=== PATIENT | male | born 1940 | race Caucasian/White ===

== ENCOUNTER 2018-11-16 09:29 | Emergency (ER) | payer MEDICARE, BC ==
[2018-11-16] MEDS ORDERED: Ondansetron 4 MG Tab.DIS PO ONE (10:47)
[2018-11-16] MEDS ORDERED: Ondansetron 4 MG/2 ML SDV IVPUSH STA (10:50)
--- NOTE | 2018-11-16 11:01 | EDM.PDOC ---
ED HPI GENERAL MEDICAL PROBLEM - General Chief Complaint: Neurological Problem Stated Complaint: DIZZY,CONFUSION Time Seen by Provider: 11/16/18 09:46 Source of Information: Reports: Patient, RN Notes Reviewed, Other ([facility] caregiver) History Limitations: Reports: Altered Mental Status (Dementia) - History of Present Illness INITIAL COMMENTS - FREE TEXT/NARRATIVE: The patient has advanced dementia, and is a resident of [facility]. He is brought to the ED by one of the caregivers at [facility]. According to the caregiver, the patient complained of feeling dizzy and nauseated when upright, with improvement if supine, this morning. The patient is confused, but the caregiver states that the patient's mental status is at his baseline. He denies feeling dyspneic. No recent vomiting, constipation, or diarrhea. The patient denies having any urinary symptoms. No recent fever. It is unclear if he has had similar symptoms in the past. The patient's PCP is Dr. Mccarty. - Related Data Allergies Allergy/AdvReac Type Severity Reaction Status Date / Time No Known Allergies Allergy Verified 01/10/18 14:49 Home Meds: Home Meds Clopidogrel [Plavix] 75 mg PO DAILY 01/10/18 [History] Lisinopril 5 mg PO DAILY 01/10/18 [History] Acetaminophen [Tylenol] 650 mg PO Q6H PRN 11/16/18 [History] Aspirin [Adult Low Dose Aspirin EC] 81 mg PO DAILY 11/16/18 [History] Finasteride [Proscar] 5 mg PO DAILY 11/16/18 [History] Ipratropium/Albuterol Sulfate [Iprat-Albut 0.5-3(2.5) mg/3 ml] 1 inh INH QID PRN 11/16/18 [History] Memantine [Namenda] 5 mg PO BID 11/16/18 [History] Ondansetron [Zofran ODT] 1 tab PO Q8H PRN #10 tab.dis 11/16/18 [Rx] Pantoprazole [ProTONIX] 40 mg PO QAM 11/16/18 [History] Polyethylene Glycol 3350 [MiraLAX] 17 gm PO DAILY 11/16/18 [History] QUEtiapine Fumarate [Seroquel] 50 mg PO BEDTIME 11/16/18 [History] Rosuvastatin [Crestor] 5 mg PO DAILY 11/16/18 [History] Tamsulosin HCl 0.4 mg PO DAILY 11/16/18 [History] metFORMIN HCl [Metformin HCl] 500 mg PO QAM 11/16/18 [History] Past Medical History Cardiovascular History: Reports: Aneurysm (AAA), CAD, High Cholesterol, Hypertension, [place] Respiratory History: Reports: COPD Gastrointestinal History: Reports: GERD Genitourinary History: Reports: BPH Musculoskeletal History: Reports: Osteoarthritis Neurological History: Reports: Alzheimers Disease (dx'd 2015), CVA (12/21/2017) Endocrine/Metabolic History: Reports: Other (See Below) (Prediabetes) - Past Surgical History HEENT Surgical History: Reports: Cataract Surgery (bilateral) Cardiovascular Surgical History: Reports: Coronary Artery Bypass (x 3 vessel) GI Surgical History: Reports: Hernia, Inguinal (bilateral) Social & Family History - Tobacco Use Smoking Status *Q: Former Smoker Used Tobacco, but Quit: Yes Month/Year Tobacco Last Used: unsure - Caffeine Use Caffeine Use: Reports: Coffee - Alcohol Use Alcohol Use History: No - Recreational Drug Use Recreational Drug Use: No - Living Situation & Occupation Living situation: Reports: , with Spouse, Assisted Living ([facility]) Occupation: Retired ED ROS GENERAL - Review of Systems Review Of Systems: ROS reveals no pertinent complaints other than HPI. GI/Abdominal: Reports: Constipation (chronic) ED EXAM, DIZZINESS - Physical Exam Exam: See Below Exam Limited By: Physical Impairment (CHEESH-NA, confused, moves slowly) General Appearance: Alert, WD/WN, No Apparent Distress Eye Exam: Bilateral Eye: EOMI, Normal Inspection Ears: Normal External Exam, Normal Canal, Normal TMs, Hearing Loss Nose: Normal Inspection, Normal Mucosa, No Blood Throat/Mouth: Normal Inspection, Normal Lips, Normal Teeth, Normal Gums, Normal Oropharynx, Normal Voice, No Airway Compromise Head Exam: Atraumatic, Normocephalic Vertigo: reproducible (placing the patient in an upright position), short duration Neck: Non-Tender, Limited Range of Motion (bilaterally) Respiratory/Chest: No Respiratory Distress, Lungs Clear, Normal Breath Sounds, No Accessory Muscle Use Cardiovascular: Normal Peripheral Pulses, Regular Rate, Rhythm, No Edema, No Gallop, No JVD, No Murmur, No Rub GI/Abdominal: Normal Bowel Sounds, Soft, Non-Tender, No Organomegaly, No Distention, No Abnormal Bruit, No Mass (Male) Exam: Deferred Rectal (Males) Exam: Deferred Neurological: Alert, Normal Dorsiflexion, CN II-XII Intact, Normal Plantar Flexion, No Motor/Sensory Deficits, Other (Pleasantly confused. [place]-Hallpike maneuver attempted bilaterally, however, the patient only reported dizziness when sat upright from both positions. Unable to determine if nystagmus was present, as the patient frequently blinked and moved his eyes, despite requests to try to keep them focused on one spot.) Back Exam: Normal Inspection, Full Range of Motion, NT Extremities: Normal Inspection, Normal Range of Motion, No Pedal Edema, Normal Capillary Refill Psychiatric: Normal Affect Skin Exam: Warm, Dry, Intact, Normal Color, No Rash EKG INTERPRETATION EKG Date: 11/16/18 Time: 09:39 Rhythm: NSR Rate (Beats/Min): 68 [place]: RAD-Right [place] Deviation (possibly due to LPFB) P-Wave: Present (borderline 1 AVB) QRS: RBBB (incomplete) ST-T: Normal QT: Normal Comparison: No Change (01/10/2018) Course - Vital Signs Last Recorded V/S: Last Vital Signs Temp 36.2 C 11/16/18 09:37 Pulse 69 11/16/18 12:50 Resp 18 11/16/18 12:50 BP 118/65 11/16/18 12:50 Pulse Ox 93 L 11/16/18 12:50 Orthostatic Blood Pressure [ 115/71 Standing] Orthostatic Blood Pressure [ 128/71 Supine] - Orders/Labs/Meds Labs: Laboratory Tests 11/16/18 11/16/18 Range/Units 09:40 09:40 WBC 8.65 (4.23-9.07) K/mm3 RBC 4.00 L (4.63-6.08) M/mm3 Hgb 12.9 L (13.7-17.5) gm/L Hct 40.6 (40.1-51.0) % MCV 101.5 H (79.0-92.2) fl MCH 32.3 H (25.7-32.2) pg MCHC 31.8 L (32.2-35.5) g/dl RDW Std Deviation 49.7 H (35.1-43.9) fL Plt Count 239 (163-337) K/mm3 MPV 9.8 (9.4-12.3) fl Neutrophils % (Manual) 69 H (40-60) % Band Neutrophils % 0 (0-10) % Lymphocytes % (Manual) 16 L (20-40) % Atypical Lymphs % 0 % Monocytes % (Manual) 10 (2-10) % Eosinophils % (Manual) 5 (0.8-7.0) % Basophils % (Manual) 0 L (0.2-1.2) Platelet Estimate Adequate Plt Morphology Comment Normal RBC Morph Comment Normal Sodium 140 (136-145) mEq/L Potassium 4.7 (3.5-5.1) mEq/L Chloride 104 (98-107) mEq/L Carbon Dioxide 27 (21-32) mEq/L Anion Gap 13.7 (5-15) BUN 23 H (7-18) mg/dL Creatinine 1.3 (0.7-1.3) mg/dL Est Cr Clr Drug Dosing 47.57 mL/min Estimated GFR (MDRD) 53 (>60) mL/min BUN/Creatinine Ratio 17.7 (14-18) Glucose 117 H (83-115) mg/dL Calcium 9.6 (8.5-10.1) mg/dL Magnesium 2.1 (1.8-2.4) mg/dl Total Bilirubin 0.5 (0.2-1.0) mg/dL AST 21 (15-37) U/L ALT 20 (16-63) U/L Alkaline Phosphatase 92 (46-116) U/L Troponin I < 0.017 (0.00-0.056) ng/mL Total Protein 7.4 (6.4-8.2) g/dl Albumin 3.9 (3.4-5.0) g/dl Globulin 3.5 gm/dL Albumin/Globulin Ratio 1.1 (1-2) Meds: Medications Discontinued Medications Generic Name Dose Route Start Last Admin Trade Name Freq PRN Reason Stop Dose Admin Ondansetron HCl 4 mg 11/16/18 10:47 11/16/18 10:52 Zofran Odt PO 11/16/18 10:48 Not Given ONETIME ONE Ondansetron HCl 4 mg 11/16/18 10:50 11/16/18 10:52 Zofran IVPUSH 11/16/18 10:51 4 mg ONETIME STA Administration - Re-Assessments/Exams Free Text/Narrative Re-Assessment/Exam: 11/16/18 10:55 11/16/18 10:09 By both history and physical examination, the patient appears to be suffering from BPPV, although he was unable to cooperate adequately with the [place]-Hallpike maneuver such that I was able to discern unilateral nystagmus. I will start the patient on Zofran, but I am not going to start meclizine, as it would likely worsen his confusion and cause urinary retention. I have ordered orthostatics and blood work, to make sure that no other significant abnormalities are found. 11/16/18 12:15 The patient is not orthostatic. His CBC is remarkable for a hemoglobin mildly depressed at 12.9. The remainder of his CBC is unremarkable. His CMP is remarkable for BUN slightly elevated at 23, with a normal creatinine. His blood glucose is mildly elevated at 117. The remainder of his CMP is unremarkable. His magnesium level is normal at 2.1. His troponin is undetectably low. 11/16/18 12:24 The caregiver who was here earlier has left, replaced by the patient's daughter. Test results discussed with the patient's daughter. As above, the patient appears to be suffering from BPPV. Because of potential complications, I am not going to start him on meclizine, however, I will prescribe Zofran ODT. I will refer the patient to ENT. Departure - Departure Time of Disposition: 12:25 Disposition: Home, Self-Care 01 Condition: Good Clinical Impression: BPPV (benign paroxysmal positional vertigo) - Discharge Information *PRESCRIPTION DRUG MONITORING PROGRAM REVIEWED*: Not Applicable *COPY OF PRESCRIPTION DRUG MONITORING REPORT IN PATIENT LONG: Not Applicable Prescriptions: Ondansetron [Zofran ODT] 1 tab PO Q8H PRN #10 tab.dis PRN Reason: Nausea/Vomiting Instructions: Vertigo, [id number], Benign Positional Vertigo Referrals: Palmer Mccarty MD [Primary Care Provider] - Derrek Bonner MD [Ordering Only Provider] - Forms: ED Department Discharge Additional Instructions: Mr. Mack was seen in the emergency room for dizziness and nausea when upright. Workup in the ER included blood work, positional blood pressure checks, and an ECG. Based on his history, physical exam, and ER tests, Mr. Mack appears to be suffering from benign paroxysmal positional vertigo (BPPV), a condition caused by the blockage of one of the tiny semicircular canals in one of his inner ears. Unfortunately, because of Mr. Mack's dementia and enlarged prostate, we are not recommending that he receive the anti-dizziness medicine meclizine. We recommend that changes in position be kept to a minimum, and that extreme care be given anytime he walks anywhere, to make sure that he does not fall. Mr. Mack has been started on the anti-nausea medicine Zofran. A prescription for Zofr[facility] has been sent to [facility] [employer]. Mr. Mack can dissolve one tablet of Zofran on his tongue up to every 8 hours, as needed for nausea/vomiting. Have him follow-up with the ENT Dr. Derrek Bonner at the next available appointment , for further evaluation and treatment of his BPPV. If any other problems, please do not hesitate to return Mr. Mack to the ER.
== END 2018-11-16 12:55 | disposition home or self-care (01) ==
LOC: JD.ED 09:29
DX: H81.10 Benign paroxysmal vertigo, unspecified ear (principal); I10 Essential (primary) hypertension; E78.00 Pure hypercholesterolemia, unspecified; I25.2 Old myocardial infarction; J44.9 Chronic obstructive pulmonary disease, unspecified; K21.9 Gastro-esophageal reflux disease without esophagitis; G30.9 Alzheimer's disease, unspecified; F02.80 Dementia in other diseases classified elsewhere, unspecified severity, without behavioral disturbance, psychotic disturbance, mood disturbance, and anxiety; Z79.899 Other long term (current) drug therapy; Z79.82 Long term (current) use of aspirin; Z87.891 Personal history of nicotine dependence
CPT/HCPCS: 36415; 80053; 83735; 84484; 85007; 85027; 96374; 99284; J2405; 99283

== ENCOUNTER 2019-06-25 12:04 | Emergency (ER) | payer MEDICARE, BC ==
[2019-06-25] MEDS ORDERED: Sodium Chloride 0.9% 10 ML Syringe FLUSH PRN (12:36)
[2019-06-25] MEDS ORDERED: Ondansetron 4 MG/2 ML SDV IVPUSH ONE (12:36)
[2019-06-25] MEDS ORDERED: Sodium Chloride 0.9% 1,000 ML IV SCH (12:45)
--- NOTE | 2019-06-25 13:26 | CT ---
Head CT Technique: Multiple axial sections through the brain were obtained. Intravenous contrast was not utilized. Comparison: Prior head CT study of 01/10/18. Findings: Ventricles along with basal cisterns and sulci over the convexities are moderately prominent. Minimal diminished density is noted within the periventricular white matter compatible with minimal small vessel ischemic demyelination change. No other abnormal parenchymal densities are seen. No evidence of intracranial hemorrhage. No midline shift or mass effect is seen. Bone window settings were reviewed. Mastoid sinuses show nothing acute. Visualized paranasal sinuses show minimal mucosal thickening within the right maxillary sinus and a retention cyst within the left maxillary sinus measuring 1.5 cm. No acute calvarial abnormality is appreciated. Impression: 1. Senescent change as noted above. 2. Minimal sinus findings believed to be chronic. 3. No acute intracranial abnormality is appreciated. Diagnostic code #2 This report was dictated in [place] Standard Time
--- NOTE | 2019-06-25 13:49 | EDM.PDOC ---
ED HPI GENERAL MEDICAL PROBLEM - General Chief Complaint: Neurological Problem Stated Complaint: CLINIC SENT HIM OVER Time Seen by Provider: 06/25/19 12:20 Source of Information: Reports: Patient, Family, Old Records History Limitations: Reports: Other (Some dementia and hard of hearing) - History of Present Illness INITIAL COMMENTS - FREE TEXT/NARRATIVE: The patient presents from [facility] with his daughter for dizziness and falls. He does okay when he is laying down but when they get him up he is very dizzy and he has fallen 3 times today. He is on aspirin but no other blood thinners. He has no injuries. He denies a headache, neck pain, chest pain, abdominal pain, hip pain or arm pain. Onset: Gradual Duration: Day(s): Improves with: Reports: None Worsens with: Reports: None Associated Symptoms: Reports: No Other Symptoms - Related Data Allergies Allergy/AdvReac Type Severity Reaction Status Date / Time No Known Allergies Allergy Verified 06/25/19 12:22 Home Meds: Home Meds Clopidogrel [Plavix] 75 mg PO DAILY 01/10/18 [History] Lisinopril 5 mg PO DAILY 01/10/18 [History] Acetaminophen [Tylenol] 650 mg PO Q6H PRN 11/16/18 [History] Aspirin [Adult Low Dose Aspirin EC] 81 mg PO DAILY 11/16/18 [History] Finasteride [Proscar] 5 mg PO DAILY 11/16/18 [History] Ipratropium/Albuterol Sulfate [Iprat-Albut 0.5-3(2.5) mg/3 ml] 1 inh INH QID PRN 11/16/18 [History] Memantine [Namenda] 5 mg PO BID 11/16/18 [History] Ondansetron [Zofran ODT] 1 tab PO Q8H PRN #10 tab.dis 11/16/18 [Rx] Pantoprazole [ProTONIX] 40 mg PO QAM 11/16/18 [History] Polyethylene Glycol 3350 [MiraLAX] 17 gm PO DAILY 11/16/18 [History] QUEtiapine Fumarate [Seroquel] 50 mg PO BEDTIME 11/16/18 [History] Rosuvastatin [Crestor] 5 mg PO DAILY 11/16/18 [History] Tamsulosin HCl 0.4 mg PO DAILY 11/16/18 [History] metFORMIN HCl [Metformin HCl] 500 mg PO QAM 11/16/18 [History] Meclizine [Antivert] 25 mg PO Q6H PRN #30 tab 06/25/19 [Rx] Past Medical History Cardiovascular History: Reports: Aneurysm, CAD, High Cholesterol, Hypertension, [place] Respiratory History: Reports: COPD Gastrointestinal History: Reports: GERD Genitourinary History: Reports: BPH Musculoskeletal History: Reports: Osteoarthritis Neurological History: Reports: Alzheimers Disease, CVA Endocrine/Metabolic History: Reports: Other (See Below) - Past Surgical History HEENT Surgical History: Reports: Cataract Surgery Cardiovascular Surgical History: Reports: Coronary Artery Bypass GI Surgical History: Reports: Hernia, Inguinal Social & Family History - Family History Family Medical History: Noncontributory - Tobacco Use Smoking Status *Q: Never Smoker - Caffeine Use Caffeine Use: Reports: Soda - Recreational Drug Use Recreational Drug Use: No - Living Situation & Occupation Living situation: Reports: , with Spouse, Assisted Living ([facility]) Occupation: Retired ED ROS GENERAL - Review of Systems Review Of Systems: See Below Constitutional: Reports: No Symptoms HEENT: Reports: Vertigo Respiratory: Reports: No Symptoms Cardiovascular: Reports: No Symptoms Endocrine: Reports: No Symptoms GI/Abdominal: Reports: No Symptoms : Reports: No Symptoms Musculoskeletal: Reports: No Symptoms Skin: Reports: No Symptoms Neurological: Reports: Dizziness ED EXAM, NEURO - Physical Exam Exam: See Below Exam Limited By: No Limitations General Appearance: Alert, No Apparent Distress Ears: Normal External Exam Nose: Normal Inspection Head Exam: Atraumatic, Normocephalic Neck: Normal Inspection Respiratory/Chest: No Respiratory Distress, Lungs Clear, Normal Breath Sounds Cardiovascular: Regular Rate, Rhythm, No Edema, No Murmur GI/Abdominal: Soft, Non-Tender, No Organomegaly, No Mass Neurological: Alert, No Motor/Sensory Deficits, Oriented x 3 EKG INTERPRETATION EKG Date: 06/25/19 Time: 12:43 Rhythm: NSR Rate (Beats/Min): 61 [place]: Normal P-Wave: Present QRS: Normal ST-T: Normal QT: Normal DC/PQ Interval: 1st degree HB Course - Vital Signs Last Recorded V/S: Last Vital Signs Temp 97.2 F 06/25/19 12:18 Pulse 66 06/25/19 12:18 Resp 18 06/25/19 12:18 BP 151/85 H 06/25/19 12:18 Pulse Ox 95 06/25/19 12:18 - Orders/Labs/Meds Orders: Active Orders 24 hr Category Date Time Status Cardiac Monitoring [RC] . DIRECTED Care 06/25/19 12:37 Active EKG Documentation Completion [RC] STAT Care 06/25/19 12:38 Active Peripheral IV Care [RC] . DIRECTED Care 06/25/19 12:38 Active Sodium Chloride 0.9% [Normal Saline] 1,000 ml Med 06/25/19 12:45 Active IV ASDIRECTED Sodium Chloride 0.9% [Saline Flush] Med 06/25/19 12:36 Active 10 ml FLUSH ASDIRECTED PRN ED Antiemetic Medication Reflex [OM.PC] Stat Oth 06/25/19 12:37 Ordered Peripheral IV Insertion Adult [OM.PC] Stat Oth 06/25/19 12:36 Ordered Medication Orders Sodium Chloride (Normal Saline) 1,000 mls @ 125 mls/hr IV ASDIRECTED GLADYS Last Admin: 06/25/19 13:53 Dose: 125 mls/hr Sodium Chloride (Saline Flush) 10 ml FLUSH ASDIRECTED PRN PRN Reason: Keep Vein Open Last Admin: 06/25/19 13:27 Dose: 10 ml Labs: Laboratory Tests 06/25/19 06/25/19 Range/Units 13:25 13:25 WBC 8.04 (4.23-9.07) K/mm3 RBC 3.75 L (4.63-6.08) M/mm3 Hgb 12.1 L (13.7-17.5) gm/dl Hct 38.4 L (40.1-51.0) % MCV 102.4 H (79.0-92.2) fl MCH 32.3 H (25.7-32.2) pg MCHC 31.5 L (32.2-35.5) g/dl RDW Std Deviation 49.3 H (35.1-43.9) fL Plt Count 258 (163-337) K/mm3 MPV 9.3 L (9.4-12.3) fl Neut % (Auto) 64.0 (34.0-67.9) % Lymph % (Auto) 23.0 (21.8-53.1) % [place] % (Auto) 8.1 (5.3-12.2) % Eos % (Auto) 4.1 (0.8-7.0) Baso % (Auto) 0.6 (0.1-1.2) % Neut # (Auto) 5.14 (1.78-5.38) K/mm3 Lymph # (Auto) 1.85 (1.32-3.57) K/mm3 [place] # (Auto) 0.65 (0.30-0.82) K/mm3 Eos # (Auto) 0.33 (0.04-0.54) K/mm3 Baso # (Auto) 0.05 (0.01-0.08) K/mm3 Sodium 139 (136-145) mEq/L Potassium 5.1 (3.5-5.1) mEq/L Chloride 104 (98-107) mEq/L Carbon Dioxide 28 (21-32) mEq/L Anion Gap 12.1 (5-15) BUN 28 H (7-18) mg/dL Creatinine 1.5 H (0.7-1.3) mg/dL Est Cr Clr Drug Dosing 43.83 mL/min Estimated GFR (MDRD) 45 (>60) mL/min BUN/Creatinine Ratio 18.7 H (14-18) Glucose 94 (83-115) mg/dL Calcium 9.2 (8.5-10.1) mg/dL Total Bilirubin 0.5 (0.2-1.0) mg/dL AST 18 (15-37) U/L ALT 19 (16-63) U/L Alkaline Phosphatase 72 (46-116) U/L Troponin I < 0.017 (0.00-0.056) ng/mL Total Protein 7.3 (6.4-8.2) g/dl Albumin 3.7 (3.4-5.0) g/dl Globulin 3.6 gm/dL Albumin/Globulin Ratio 1.0 (1-2) Meds: Medications Generic Name Dose Route Start Last Admin Trade Name Freq PRN Reason Stop Dose Admin Sodium Chloride 1,000 mls @ 125 mls/hr 06/25/19 12:45 06/25/19 13:53 Normal Saline IV 125 mls/hr ASDIRECTED GLADYS Administration Sodium Chloride 10 ml 06/25/19 12:36 06/25/19 13:27 Saline Flush FLUSH 10 ml ASDIRECTED PRN Administration Keep Vein Open Discontinued Medications Generic Name Dose Route Start Last Admin Trade Name Rachid PRN Reason Stop Dose Admin Meclizine HCl 25 mg 06/25/19 12:38 06/25/19 13:27 Antivert PO 06/25/19 12:39 25 mg ONETIME ONE Administration Ondansetron HCl 4 mg 06/25/19 12:36 06/25/19 13:26 Zofran IVPUSH 06/25/19 12:37 4 mg ONETIME ONE Administration - Re-Assessments/Exams Free Text/Narrative Re-Assessment/Exam: 06/25/19 14:48 I ordered an IV NS at 125mL/hr, antivert 25mg PO, labs and a CT of his head. His EKG shows a 1st degree HB with no acute changes. His CT shows senescent change. Minimal sinus findings believed to be chronic. No acute intracranial abnormality is appreciated. His Hgb was a little low at 12.1. His creatinine was elevated at 1.5. Troponin is negative. Departure - Departure Time of Disposition: 15:00 Disposition: Home, Self-Care 01 Condition: Good Clinical Impression: Vertigo Fall Qualifiers: Encounter type: initial encounter Qualified Code(s): W19.XXXA - Unspecified fall, initial encounter - Discharge Information *PRESCRIPTION DRUG MONITORING PROGRAM REVIEWED*: Not Applicable *COPY OF PRESCRIPTION DRUG MONITORING REPORT IN PATIENT LONG: Not Applicable Prescriptions: Meclizine [Antivert] 25 mg PO Q6H PRN #30 tab PRN Reason: Dizziness Referrals: Palmer Mccarty MD [Primary Care Provider] - 1 Week Forms: ED Department Discharge Additional Instructions: Take your medicine as prescribed. Take the antivert every 6 hours as needed for dizziness. Take time when standing up. Please return if you are worse. Sepsis Event Note - Evaluation Sepsis Screening Result: No Definite Risk - Focused Exam Vital Signs: Vital Signs Temp Pulse Resp BP Pulse Ox 06/25/19 12:18 97.2 F 66 18 151/85 H 95 Date Exam was Performed: 06/25/19 Time Exam was Performed: 14:47 - My Orders Last 24 Hours: My Active Orders 06/25/19 12:36 Sodium Chloride 0.9% [Saline Flush] 10 ml FLUSH ASDIRECTED PRN Peripheral IV Insertion Adult [OM.PC] Stat 06/25/19 12:37 Cardiac Monitoring [RC] . DIRECTED ED Antiemetic Medication Reflex [OM.PC] Stat 06/25/19 12:38 EKG Documentation Completion [RC] STAT Peripheral IV Care [RC] . DIRECTED 06/25/19 12:45 Sodium Chloride 0.9% [Normal Saline] 1,000 ml IV ASDIRECTED - Assessment/Plan Last 24 Hours: My Active Orders 06/25/19 12:36 Sodium Chloride 0.9% [Saline Flush] 10 ml FLUSH ASDIRECTED PRN Peripheral IV Insertion Adult [OM.PC] Stat 06/25/19 12:37 Cardiac Monitoring [RC] . DIRECTED ED Antiemetic Medication Reflex [OM.PC] Stat 06/25/19 12:38 EKG Documentation Completion [RC] STAT Peripheral IV Care [RC] . DIRECTED 06/25/19 12:45 Sodium Chloride 0.9% [Normal Saline] 1,000 ml IV ASDIRECTED
== END 2019-06-25 15:10 | disposition home or self-care (01) ==
LOC: JD.ED 12:04
DX: R42 Dizziness and giddiness (principal); I10 Essential (primary) hypertension; I25.2 Old myocardial infarction; I25.10 Atherosclerotic heart disease of native coronary artery without angina pectoris; E78.00 Pure hypercholesterolemia, unspecified; J44.9 Chronic obstructive pulmonary disease, unspecified; K21.9 Gastro-esophageal reflux disease without esophagitis; M19.90 Unspecified osteoarthritis, unspecified site; Z86.73 Personal history of transient ischemic attack (TIA), and cerebral infarction without residual deficits; Z79.82 Long term (current) use of aspirin; Z79.84 Long term (current) use of oral hypoglycemic drugs; Z79.02 Long term (current) use of antithrombotics/antiplatelets; Z79.899 Other long term (current) drug therapy; W19.XXXA Unspecified fall, initial encounter
CPT/HCPCS: 36415; 70450; 80053; 84484; 85025; 93005; 96361; 96374; 99284; A9270; J2405; J7030; 93010

== ENCOUNTER 2019-11-11 16:51 | Emergency (ER) | payer MEDICARE, BC ==
--- NOTE | 2019-11-11 17:15 | EDM.PDOC ---
<Scot Kelley Symone - Last Filed: 11/11/19 18:58> ED HPI GENERAL MEDICAL PROBLEM - General Chief Complaint: Genitourinary Problem Stated Complaint: TROUBLE URINATING Time Seen by Provider: 11/11/19 17:14 Source of Information: Reports: Patient History Limitations: Reports: No Limitations - History of Present Illness INITIAL COMMENTS - FREE TEXT/NARRATIVE: 79-year-old man presents to the ED in the accompaniment of his daughter or granddaughter. He presents with diffuse lower abdominal pain and inability to void more than a few dribbles the last 3 to 4 days. He was investigated last week for possible urinary tract infection at [facility] and the urine apparently was negative. Patient has had troubles with his prostate for many years with known benign prostate hypertrophy. He has never required a Sharpe catheter. Apparently no new medications have been started to his knowledge such as an acetylcholine inhibitor that would cause his retention. He has associated mild nausea. He states his bowel function is still good. His appetite is poor because of the lower abdominal pain.. Onset: Gradual Onset Date: 11/05/19 Duration: Day(s):, Constant, Getting Worse Location: Reports: Abdomen (Use lower abdominal pain and bloating. Difficulty voiding.) Quality: Reports: Other Severity: Moderate (~Voiding with diffuse lower abdominal pain) Improves with: Reports: None ( 5 out of 10) Worsens with: Reports: None Context: Denies: Activity, Exercise, Lifting, Sick Contact, Trauma, Other Associated Symptoms: Reports: Loss of Appetite, Malaise, Nausea/Vomiting, Shortness of Breath, Weakness. 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: Reports: Other (see below) (None.) Right Lower Abdomen Pain Score (Numeric/FACES): 5 - Related Data Allergies Allergy/AdvReac Type Severity Reaction Status Date / Time No Known Allergies Allergy Verified 11/11/19 17:18 Home Meds: Home Meds Clopidogrel [Plavix] 75 mg PO DAILY 01/10/18 [History] Lisinopril 5 mg PO DAILY 01/10/18 [History] Acetaminophen [Tylenol] 650 mg PO Q6H PRN 11/16/18 [History] Aspirin [Adult Low Dose Aspirin EC] 81 mg PO DAILY 11/16/18 [History] Finasteride [Proscar] 5 mg PO DAILY 11/16/18 [History] Memantine [Namenda] 5 mg PO BID 11/16/18 [History] Ondansetron [Zofran ODT] 1 tab PO Q8H PRN #10 tab.dis 11/16/18 [Rx] Pantoprazole [ProTONIX] 40 mg PO QAM 11/16/18 [History] QUEtiapine Fumarate [Seroquel] 50 mg PO BEDTIME 11/16/18 [History] Rosuvastatin [Crestor] 5 mg PO DAILY 11/16/18 [History] Tamsulosin HCl 0.4 mg PO DAILY 11/16/18 [History] metFORMIN HCl [Metformin HCl] 500 mg PO QAM 11/16/18 [History] polyethylene glycoL 3350 [MiraLAX] 17 gm PO DAILY 11/16/18 [History] Meclizine [Antivert] 25 mg PO Q6H PRN #30 tab 06/25/19 [Rx] Doxycycline [Vibra-Tabs] 100 mg PO BID #28 tablet 11/11/19 [Rx] Past Medical History Cardiovascular History: Reports: Aneurysm, CAD, High Cholesterol, Hypertension, AR Respiratory History: Reports: COPD Gastrointestinal History: Reports: GERD Genitourinary History: Reports: BPH (fpr many years) Musculoskeletal History: Reports: Osteoarthritis Neurological History: Reports: Alzheimers Disease, CVA, Other (See Below) ( Unclear how long he has been on Namenda) Endocrine/Metabolic History: Reports: Other (See Below) - Past Surgical History HEENT Surgical History: Reports: Cataract Surgery Cardiovascular Surgical History: Reports: Coronary Artery Bypass GI Surgical History: Reports: Hernia, Inguinal Social & Family History - Family History Family Medical History: Noncontributory - Caffeine Use Caffeine Use: Reports: Soda - Living Situation & Occupation Living situation: Reports: , with Spouse, Extended Care Facility ( [facility] house) Occupation: Retired ED ROS GENERAL - Review of Systems Review Of Systems: See Below Constitutional: Reports: Malaise, Weakness, Fatigue, Decreased Appetite. Denies : Fever, Chills HEENT: Reports: Glasses, Hearing Loss (Mildly hard of hearing) Respiratory: Reports: Shortness of Breath. Denies: Wheezing, Pleuritic Chest Pain, Cough, Sputum, Hemoptysis Cardiovascular: Reports: Blood Pressure Problem, Dyspnea on Exertion (Usually in his feet), Edema. Denies: Claudication, Lightheadedness, Orthopnea, Palpitations Endocrine: Reports: Fatigue GI/Abdominal: Reports: Decreased Appetite (Since he has the lower abdominal pressure discomfort). Denies: Constipation, Diarrhea : Reports: Frequency, Urinary Retention (Urinary retention at presentation today), Other (1 BPH) Skin: Reports: No Symptoms Neurological: Reports: Confusion (On Alzheimer's disease.), Difficulty Walking ( On occasion). Denies: Dizziness, Headache, Numbness, Syncope, Tingling Psychiatric: Reports: Agitation (Has been known to become agitated. Is on Seroquel) Hematologic/Lymphatic: Reports: No Symptoms Immunologic: Reports: No Symptoms ED EXAM, RENAL/ - Physical Exam Exam: See Below Exam Limited By: No Limitations General Appearance: Alert (He seemed alert and oriented today and answered all questions quite appropriately.), WD/WN, Mild Distress, Other (Lower abdominal pain.) Eye Exam: Bilateral Eye: Normal Inspection, Periorbital Changes Throat/Mouth: Normal Inspection, Normal Lips, Normal Oropharynx Head: Atraumatic, Normocephalic, Other (No outward signs of any head or facial trauma.) Neck: Normal Inspection. No: Carotid Bruit, Lymphadenopathy (L), Lymphadenopathy (R), Thyromegaly Respiratory/Chest: Respiratory Distress, Decreased Breath Sounds (Mild tachypnea on examination. Minutes breath sounds to lower 25% lung kline bilaterally and posteriorly.). No: Rales, Rhonchi, Wheezing Cardiovascular: Normal Peripheral Pulses, Regular Rate, Rhythm, No Edema, No Gallop, No Murmur, No Rub, Other (Healed midline sternotomy. Apparently had a quadruple bypass in the past.) GI/Abdominal: Distended (He has absence of bowel sounds. Abdomen is grossly distended from the pubic symphysis well above the umbilicus compatible with a markedly distended urinary bladder. Bladder scan estimates greater than 750 mils I suspect there is greater than 1500 mils in his bladder.), Tender (He is moderately tender to palpation in the distribution of the urinary bladder and inferior to the umbilicus.), Abnormal Bowel Sounds (Male) Exam: No Hernia Back Exam: Normal Inspection, Full Range of Motion. No: CVA Tenderness (L), CVA Tenderness (R) Extremities: Normal Inspection, Normal Range of Motion, Non-Tender, Other Neurological: Alert (Trace pedal edema feet), CN II-XII Intact. No: Oriented ( Disoriented to time of day) Psychiatric: Normal Affect, Normal Mood Skin Exam: Warm, Dry, Intact, Normal Color, No Rash Course - Vital Signs Last Recorded V/S: Last Vital Signs Temp 36.2 C 11/11/19 19:30 Pulse 67 11/11/19 19:30 Resp 20 11/11/19 19:30 BP 137/68 11/11/19 19:30 Pulse Ox 93 L 11/11/19 19:30 - Orders/Labs/Meds Orders: Active Orders 24 hr Category Date Time Status Bladder Scan [RC] ASDIRECTED Care 11/11/19 17:14 Active Insert Sharpe Catheter [Insert Urinary Catheter] [OM.PC] Care 11/11/19 18:00 Ordered Q24H Urinary Catheter Assessment [RC] ASDIRECTED Care 11/11/19 17:59 Active URINALYSIS W/MICROSCOPIC [UA W/MICROSCOPIC] [URIN] Stat Lab 11/11/19 18:37 Ordered Labs: Laboratory Tests 11/11/19 11/11/19 11/11/19 Range/Units 18:15 18:15 18:15 WBC 7.86 (4.23-9.07) K/mm3 RBC 3.57 L (4.63-6.08) M/mm3 Hgb 11.3 L (13.7-17.5) gm/dl Hct 35.2 L (40.1-51.0) % MCV 98.6 H D (79.0-92.2) fl MCH 31.7 (25.7-32.2) pg MCHC 32.1 L (32.2-35.5) g/dl RDW Std Deviation 47.6 H (35.1-43.9) fL Plt Count 332 (163-337) K/mm3 MPV 8.3 L (9.4-12.3) fl Neutrophils % (Manual) 69 H (40-60) % Band Neutrophils % 0 (0-10) % Lymphocytes % (Manual) 17 L (20-40) % Atypical Lymphs % 0 % Monocytes % (Manual) 11 H (2-10) % Eosinophils % (Manual) 3 (0.8-7.0) % Basophils % (Manual) 0 L (0.2-1.2) Platelet Estimate Adequate Anisocytosis 1+ slight RBC Morph Comment Not Reportable Sodium 132 L (136-145) mEq/L Potassium 4.7 (3.5-5.1) mEq/L Chloride 97 L (98-107) mEq/L Carbon Dioxide 27 (21-32) mEq/L Anion Gap 12.7 (5-15) BUN 15 (7-18) mg/dL Creatinine 1.4 H (0.7-1.3) mg/dL Est Cr Clr Drug Dosing TNP Estimated GFR (MDRD) 49 (>60) mL/min BUN/Creatinine Ratio 10.7 L (14-18) Glucose 114 (83-115) mg/dL Calcium 9.6 (8.5-10.1) mg/dL Total Bilirubin 0.5 (0.2-1.0) mg/dL AST 22 (15-37) U/L ALT 17 (16-63) U/L Alkaline Phosphatase 72 (46-116) U/L Total Protein 7.3 (6.4-8.2) g/dl Albumin 3.8 (3.4-5.0) g/dl Globulin 3.5 gm/dL Albumin/Globulin Ratio 1.1 (1-2) PSA Screen 2.6 (0.0-4.0) ng/mL Urine Color (Yellow) Urine Appearance (Clear) Urine pH (5.0-8.0) Ur Specific [place] (1.005-1.030) Urine Protein (Negative) Urine Glucose (UA) (Negative) Urine Ketones (Negative) Urine Occult Blood (Negative) Urine Nitrite (Negative) Urine Bilirubin (Negative) Urine Urobilinogen (0.2-1.0) Ur Leukocyte Esterase (Negative) Urine RBC (0-5) /hpf Urine WBC (0-5) /hpf Ur Squamous Epith Cells (0-5) /hpf Amorphous Sediment (NOT SEEN) /hpf Urine Bacteria (FEW) /hpf Urine Mucus (FEW) /hpf 11/11/19 Range/Units 18:20 WBC (4.23-9.07) K/mm3 RBC (4.63-6.08) M/mm3 Hgb (13.7-17.5) gm/dl Hct (40.1-51.0) % MCV (79.0-92.2) fl MCH (25.7-32.2) pg MCHC (32.2-35.5) g/dl RDW Std Deviation (35.1-43.9) fL Plt Count (163-337) K/mm3 MPV (9.4-12.3) fl Neutrophils % (Manual) (40-60) % Band Neutrophils % (0-10) % Lymphocytes % (Manual) (20-40) % Atypical Lymphs % % Monocytes % (Manual) (2-10) % Eosinophils % (Manual) (0.8-7.0) % Basophils % (Manual) (0.2-1.2) Platelet Estimate Anisocytosis RBC Morph Comment Sodium (136-145) mEq/L Potassium (3.5-5.1) mEq/L Chloride (98-107) mEq/L Carbon Dioxide (21-32) mEq/L Anion Gap (5-15) BUN (7-18) mg/dL Creatinine (0.7-1.3) mg/dL Est Cr Clr Drug Dosing Estimated GFR (MDRD) (>60) mL/min BUN/Creatinine Ratio (14-18) Glucose (83-115) mg/dL Calcium (8.5-10.1) mg/dL Total Bilirubin (0.2-1.0) mg/dL AST (15-37) U/L ALT (16-63) U/L Alkaline Phosphatase (46-116) U/L Total Protein (6.4-8.2) g/dl Albumin (3.4-5.0) g/dl Globulin gm/dL Albumin/Globulin Ratio (1-2) PSA Screen (0.0-4.0) ng/mL Urine Color Yellow (Yellow) Urine Appearance Clear (Clear) Urine pH 6.5 (5.0-8.0) Ur Specific [place] 1.020 (1.005-1.030) Urine Protein Negative (Negative) Urine Glucose (UA) Negative (Negative) Urine Ketones Negative (Negative) Urine Occult Blood 2+ H (Negative) Urine Nitrite Negative (Negative) Urine Bilirubin Negative (Negative) Urine Urobilinogen 0.2 (0.2-1.0) Ur Leukocyte Esterase Negative (Negative) Urine RBC >100 H (0-5) /hpf Urine WBC 0-5 (0-5) /hpf Ur Squamous Epith Cells 0-5 (0-5) /hpf Amorphous Sediment Few H (NOT SEEN) /hpf Urine Bacteria Few (FEW) /hpf Urine Mucus Not seen (FEW) /hpf Meds: Medications Discontinued Medications Generic Name Dose Route Start Last Admin Trade Name Rachid PRN Reason Stop Dose Admin Doxycycline Hyclate 100 mg 11/11/19 19:03 11/11/19 19:29 Vibramycin PO 11/11/19 19:04 100 mg ONETIME ONE Administration Lidocaine HCl 10 ml 11/11/19 17:49 11/11/19 17:58 Xylocaine 2% Jelly MUCMEM 11/11/19 17:50 10 ml ONETIME ONE Administration - Radiology Interpretation Free Text/Narrative:: 79-year-old male presents to the ED in the accompaniment of his daughter or granddaughter. He complains of diffuse lower abdominal pain and difficulty voiding for the last 3 to 5 days. Apparently had problems last week as well and had a urine normal urinalysis. On examination he is in acute urinary retention with bladder well up above the umbilicus. Plan he will have a Sharpe catheter placed under local anesthetic with lidocaine gel instilled into the urethra. A urinalysis will be sent. He will have routine labs as well since he has a history of congestive heart failure coronary disease and a somewhat prolonged history of urinary tract obstructive symptoms. He could well have obstructive uropathy. He likely has a component of prostatitis to have caused his acute urinary retention. However he is also on 3 medications with carry an anticholinergic side effect i.e. Seroquel, Antivert or meclizine, and Namenda. Plan will be to leave the Sharpe catheter in place. Work ordered to make sure that he does not have obstructive uropathy. - Re-Assessments/Exams Free Text/Narrative Re-Assessment/Exam: 11/11/19 18:45 White count is 7.86. Differential shows 69% neutrophils and no bands. Hemoglobin is slightly low at 11.3 with hematocrit of 35.2. MCV is slightly elevated at 98.6. Platelet count 332,000. The slide shows 1+ anisocytosis. So far he has had 1000 mils of clear urine out of the Sharpe catheter. 11/11/19 18:58 Urinalysis is back and shows yellow urine with 2+ occult blood and negative leukocyte Esterase.. There is greater than 100 RBCs per prior field likely secondary to catheter placement. Departure - Departure Disposition: DC/Tfer to [facility] Condition: Fair Clinical Impression: Acute urinary retention - Discharge Information *PRESCRIPTION DRUG MONITORING PROGRAM REVIEWED*: Not Applicable *COPY OF PRESCRIPTION DRUG MONITORING REPORT IN PATIENT LONG: Not Applicable Prescriptions: Doxycycline [Vibra-Tabs] 100 mg PO BID #28 tablet Referrals: Palmer Mccarty MD [Primary Care Provider] - Forms: ED Department Discharge Additional Instructions: Evaluation in the emergency room tonight in regards to acute urinary retention likely due to low-grade infection in the prostate gland. Known to have benign prostatic hypertrophy. Also on 3 medications that could interfere with bladder function. Seroquel, meclizine, and Namenda. All of these medicines carry an anticholinergic side effect which could precipitate or contribute to acute urinary retention. Urinalysis is negative which is often the case and prostatitis. Plan is to leave the Sharpe catheter in place for the next 3 days. Start antibiotic doxycycline 100 mg twice daily for the next 14 days. Initial tablet started in the ED. After 3 days the Sharpe catheter could be removed in the morning and if he has not voided normally within 8 hours he should return to medical care to have the Sharpe catheter replaced. Sepsis Event Note - Focused Exam Vital Signs: Vital Signs Temp Pulse Resp BP Pulse Ox 11/11/19 19:30 36.2 C 67 20 137/68 93 L 11/11/19 17:13 36.6 C 79 22 H 133/77 93 L Date Exam was Performed: 11/11/19 Time Exam was Performed: 18:58 <Jett Quiroz - Last Filed: 11/11/19 19:41> Course - Re-Assessments/Exams Free Text/Narrative Re-Assessment/Exam: 11/11/19 19:40 History is her back sodium 132 potassium 4.7 chloride 97 CO2 27 BUN 15 creatinine 1.4 we will discharge with plan per Dr. Kelley Departure - Departure Time of Disposition: 19:41 Sepsis Event Note - Focused Exam Date Exam was Performed: 11/11/19 Time Exam was Performed: 19:40
[2019-11-11] MEDS ORDERED: Lidocaine 2% Jelly 10 ML Urojet MUCMEM ONE (17:49)
[2019-11-11] MEDS ORDERED: Doxycycline 100 MG Cap PO ONE (19:03)
== END 2019-11-11 20:25 ==
LOC: JD.ED 16:51
DX: N40.1 Benign prostatic hyperplasia with lower urinary tract symptoms (principal); R33.8 Other retention of urine; I10 Essential (primary) hypertension; E78.00 Pure hypercholesterolemia, unspecified; I25.10 Atherosclerotic heart disease of native coronary artery without angina pectoris; I25.2 Old myocardial infarction; J44.9 Chronic obstructive pulmonary disease, unspecified; K21.9 Gastro-esophageal reflux disease without esophagitis; Z86.73 Personal history of transient ischemic attack (TIA), and cerebral infarction without residual deficits; Z95.1 Presence of aortocoronary bypass graft; Z79.02 Long term (current) use of antithrombotics/antiplatelets; Z79.82 Long term (current) use of aspirin; Z79.899 Other long term (current) drug therapy
CPT/HCPCS: 36415; 51702; 51798; 80053; 81001; 85007; 85027; 99284; A9270; G0103; 99283

== ENCOUNTER 2020-04-13 21:00 | Emergency (ER) | payer MEDICARE, BC ==
[2020-04-13] MEDS ORDERED: Sodium Chloride 0.9% 10 ML Syringe FLUSH PRN (21:15)
--- NOTE | 2020-04-13 21:22 | EDM.PDOC ---
ED HPI GENERAL MEDICAL PROBLEM - General Source of Information: Reports: Patient, EMS, RN Notes Reviewed, Other ([facility] staff) History Limitations: Reports: Altered Mental Status (pt has dementia, history is obtained mainly from EMS and [facility] house staff) - General Chief Complaint: Behavioral/Psych Stated Complaint: [facility] AMBULANCE Time Seen by Provider: 04/13/20 21:14 - History of Present Illness INITIAL COMMENTS - FREE TEXT/NARRATIVE: The patient is an 79-year-old male who was brought into the the ED via the [place] ambulance service, for the evaluation of his behavioral outburst. The patient does have dementia, and resides at [facility]. It was reported that the patient began to get combative with his , and staff. The staff member present states that he still full thing of Pepsi at her earlier. He was also combative with his yesterday. There is some apparent concern regarding a UTI, patient has an indwelling Sharpe placed, that is very strong smelling. They state that they did do a urinalysis today and sent it to [facility] for evaluation they do not have results. Other than this, he has had no fevers, cough, shortness of breath, nausea/vomiting/diarrhea. They state that these outbursts and behaviors which is very atypical for this gentleman. At this time he is calm, and cooperative. There is a skin tear on his left inner forearm, that measures roughly 6 x 5 cm, and another on the lateral forearm, that is linear and measures 2 cm. Patient is on a blood thinner. He has not been noted to have any recent falls or trauma. (Shantell Mensah V) - Related Data Allergies Allergy/AdvReac Type Severity Reaction Status Date / Time No Known Allergies Allergy Verified 04/13/20 21:10 Home Meds: Home Meds Clopidogrel [Plavix] 75 mg PO DAILY 01/10/18 [History] Acetaminophen [Tylenol] 650 mg PO Q6H PRN 11/16/18 [History] Aspirin [Adult Low Dose Aspirin EC] 81 mg PO DAILY 11/16/18 [History] Memantine [Namenda] 5 mg PO BID 11/16/18 [History] Pantoprazole [ProTONIX] 40 mg PO QAM 11/16/18 [History] QUEtiapine Fumarate [Seroquel] 50 mg PO BID 11/16/18 [History] Rosuvastatin [Crestor] 5 mg PO DAILY 11/16/18 [History] metFORMIN HCl [Metformin HCl] 500 mg PO QAM 11/16/18 [History] polyethylene glycoL 3350 [MiraLAX] 17 gm PO DAILY 11/16/18 [History] Doxycycline [Vibramycin] 100 mg PO BID 10 Days #20 tab 04/13/20 [Rx] Ipratropium/Albuterol Sulfate [Iprat-Albut 0.5-3(2.5) MG/3 ML] 1 dose INH ASDIRECTED 04/13/20 [History] Sertraline [Zoloft] 1 tab PO DAILY 04/13/20 [History] traZODone HCl [Trazodone HCl] 0.5 tab PO BEDTIME 04/13/20 [History] Past Medical History Cardiovascular History: Reports: Aneurysm, CAD, High Cholesterol, Hypertension, [place] Respiratory History: Reports: COPD Gastrointestinal History: Reports: GERD Genitourinary History: Reports: BPH Musculoskeletal History: Reports: Osteoarthritis Neurological History: Reports: Alzheimers Disease, CVA Psychiatric History: Reports: Dementia, Other (See Below) Other Psychiatric History: behavioral disturbance - Past Surgical History HEENT Surgical History: Reports: Cataract Surgery Cardiovascular Surgical History: Reports: Coronary Artery Bypass GI Surgical History: Reports: Hernia, Inguinal Social & Family History - Family History Family Medical History: Noncontributory - Tobacco Use Tobacco Use Status *Q: Unknown Ever Used Tobacco Second Hand Smoke Exposure: No - Caffeine Use Caffeine Use: Reports: Coffee - Recreational Drug Use Recreational Drug Use: No - Living Situation & Occupation Living situation: Reports: , with Spouse, [facility] Facility ([facility]) Occupation: Retired ED ROS GENERAL - Review of Systems Review Of Systems: Comprehensive ROS is negative, except as noted in HPI. - Physical Exam Exam: See Below Exam Limited By: Altered Mental Status (pt is also very hard of hearing, but answers questions appropriately) General Appearance: Alert, WD/WN, No Apparent Distress Respiratory/Chest: No Respiratory Distress, No Accessory Muscle Use, Chest Non- Tender, Decreased Breath Sounds (bilateral lung kline), Rhonchi (bilateral lung kline) Cardiovascular: Normal Peripheral Pulses, Regular Rate, Rhythm, No Edema, No Murmur GI/Abdominal: Normal Bowel Sounds, Soft, Non-Tender, No Distention, No Mass Neuro Exam (Abbreviated): Alert, No Motor/Sensory Deficits Extremities: Normal Capillary Refill Psychiatric: Normal Affect, Normal Mood Skin Exam: Warm, Dry, Normal Color, No Rash, Other (Skin tear lesion on the patient's left inner forearm, 6 x 5 cm. Another linear skin tear lesion on the lateral forearm, this measures 2 cm.) Course - Vital Signs Last Recorded V/S: Last Vital Signs Temp 36.9 C 04/13/20 21:04 Pulse 95 04/13/20 21:04 Resp 20 04/13/20 21:04 BP 129/77 04/13/20 21:04 Pulse Ox 92 L 04/13/20 21:04 - Orders/Labs/Meds Labs: Laboratory Tests 04/13/20 04/13/20 04/13/20 Range/Units 21:40 21:40 21:45 WBC 9.51 H (4.23-9.07) K/mm3 RBC 3.15 L (4.63-6.08) M/mm3 Hgb 10.1 L (13.7-17.5) gm/dl Hct 32.1 L (40.1-51.0) % MCV 101.9 H D (79.0-92.2) fl MCH 32.1 (25.7-32.2) pg MCHC 31.5 L (32.2-35.5) g/dl RDW Std Deviation 48.8 H (35.1-43.9) fL Plt Count 257 D (163-337) K/mm3 MPV 9.4 (9.4-12.3) fl Neut % (Auto) 75.2 H (34.0-67.9) % Lymph % (Auto) 12.8 L (21.8-53.1) % [place] % (Auto) 8.0 (5.3-12.2) % Eos % (Auto) 3.3 (0.8-7.0) Baso % (Auto) 0.5 (0.1-1.2) % Neut # (Auto) 7.15 H (1.78-5.38) K/mm3 Lymph # (Auto) 1.22 L (1.32-3.57) K/mm3 [place] # (Auto) 0.76 (0.30-0.82) K/mm3 Eos # (Auto) 0.31 (0.04-0.54) K/mm3 Baso # (Auto) 0.05 (0.01-0.08) K/mm3 Sodium 139 (136-145) mEq/L Potassium 4.4 (3.5-5.1) mEq/L Chloride 104 (98-107) mEq/L Carbon Dioxide 25 (21-32) mEq/L Anion Gap 14.4 (5-15) BUN 36 H (7-18) mg/dL Creatinine 1.8 H (0.7-1.3) mg/dL Est Cr Clr Drug Dosing 35.93 mL/min Estimated GFR (MDRD) 36 (>60) mL/min BUN/Creatinine Ratio 20.0 H (14-18) Glucose 117 H (83-115) mg/dL Calcium 9.1 (8.5-10.1) mg/dL Magnesium 1.9 (1.8-2.4) mg/dl Total Bilirubin 0.3 (0.2-1.0) mg/dL AST 20 (15-37) U/L ALT 18 (16-63) U/L Alkaline Phosphatase 83 (46-116) U/L Total Protein 6.7 (6.4-8.2) g/dl Albumin 3.4 (3.4-5.0) g/dl Globulin 3.3 gm/dL Albumin/Globulin Ratio 1.0 (1-2) Urine Color Yellow (Yellow) Urine Appearance Slt cloudy H (Clear) Urine pH 7.5 (5.0-8.0) Ur Specific [place] 1.020 (1.005-1.030) Urine Protein 3+ H (Negative) Urine Glucose (UA) Negative (Negative) Urine Ketones Trace H (Negative) Urine Occult Blood 3+ H (Negative) Urine Nitrite Positive H (Negative) Urine Bilirubin 1+ H (Negative) Urine Urobilinogen 1.0 (0.2-1.0) Ur Leukocyte Esterase 3+ H (Negative) Urine RBC 10-20 H (0-5) /hpf Urine WBC 20-30 H (0-5) /hpf Ur Squamous Epith Cells 0-5 (0-5) /hpf Triple Phos Crystals Moderate H (NONE) /hpf Urine Bacteria Moderate H (FEW) /hpf Urine Mucus Few (FEW) /hpf Meds: Medications Discontinued Medications Generic Name Dose Route Start Last Admin Trade Name Freq PRN Reason Stop Dose Admin Doxycycline Hyclate 100 mg 04/13/20 22:48 04/13/20 22:58 Vibramycin PO 04/13/20 22:49 100 mg ONETIME ONE Administration Sodium Chloride 10 ml 04/13/20 21:15 04/13/20 21:48 Saline Flush FLUSH 10 ml ASDIRECTED PRN Administration Keep Vein Open - Re-Assessments/Exams Free Text/Narrative Re-Assessment/Exam: 04/13/20 21:22 Patient presents to the ED for the evaluation of his behavioral outbursts at [facility]. We will get a urine sample, chest x-ray, baseline labs for evaluation to see if there is a metabolic abnormality causing the patient's issues. 04/13/20 22:16 Patient CBC demonstrates a mildly elevated white count at 9.5, 75% neutrophils and no bands on auto differential. Metabolic panel still pending. The urine which was taken from his indwelling Sharpe catheter, then I am told from nursing staff was replaced this morning, shows slightly cloudy urine, with 3+ occult blood, positive nitrites, 3+ leukocyte esterase, 10-20 RBCs, 20-30 white blood cells, and moderate urine bacteria. This was clamped specimen as well, and from a fairly clean Sharpe that was replaced this morning. I have sent for culture, but we will probably treat him for UTI at this time regarding this information of a recently changed Sharpe. 04/13/20 22:23 The patient's chest x-ray is negative for any acute findings. They do suspect significant COPD, which is concurrent with a diagnosis he already has. 04/13/20 22:43 The patient's metabolic panel does demonstrate that he is somewhat dry but this can be corrected with oral fluids. The daughter is okay with this plan at this time. I will start him on Doxycycline 100mg BID x 10 days, he is on Seroquel and this does not interact well with Levaquin, hence the choice for Doxy. It appears that he has tolerated this before. (Shantell Mensah V) 04/17/20 08:23 Patient's urine grew out Proteus. He was started on doxycycline this was not reported in the sensitivity. I did call [facility] where the patient resides and according to staff the patient is doing better his urine is clearing. We will make no changes at this time. (Jett Quiroz) Departure - Departure Time of Disposition: 22:45 Condition: Good - Discharge Information *PRESCRIPTION DRUG MONITORING PROGRAM REVIEWED*: No *COPY OF PRESCRIPTION DRUG MONITORING REPORT IN PATIENT LONG: No - Departure Disposition: Home, Self-Care 01 Clinical Impression: Behavioral change Catheter-associated urinary tract infection Qualifiers: Indwelling urinary catheter type: indwelling urethral catheter Encounter type: initial encounter Qualified Code(s): T83.511A - Infection and inflammatory reaction due to indwelling urethral catheter, initial encounter - Discharge Information Prescriptions: Doxycycline [Vibramycin] 100 mg PO BID 10 Days #20 tab Instructions: Urinary Tract Infection, Adult, [id number] Referrals: Palmer Mccarty MD [Primary Care Provider] - Forms: ED Department Discharge Additional Instructions: You have been evaluated in the ED for your behavioral outbursts. Your urinalysis was consistent with an acute urinary tract infection. Your urine was sent for culture, and you will be notified if you should need a change in your antibiotic. This may take up to 48 hours to result. You have been given a prescription for Doxycycline, 100 mg 1 tablet 2 times a day for 10 days. This has been electronically sent to the [facility] pharmacy located in [facility]. Your first dose was given in the ED tonight. Your other labs are essentially unremarkable. You were just the slightest bit dehydrated by lab standards. Please increase your oral fluid intake and try to stay adequately hydrated. Please return to the ED if your symptoms change or worsen. Sepsis Event Note (ED) - Evaluation Sepsis Screening Result: No Definite Risk
[2020-04-13] MEDS ORDERED: Doxycycline 100 MG Cap PO ONE (22:48)
--- NOTE | 2020-04-14 10:15 | CR ---
PROCEDURE INFORMATION: Exam: XR Chest, 2 Views Exam date and time: 04/13/2020 9:49 PM Age: 79 years old Clinical indication: Other: Low 02 sats, coars lung sounds TECHNIQUE: Imaging protocol: XR of the chest Views: 2 views. COMPARISON: DX Chest 1V Frontal 01/10/2018 2:23 PM FINDINGS: Lungs: The lungs are clear. The lungs are markedly hyperinflated. Pleural space: No pleural effusion. No pneumothorax. Heart/Mediastinum: The heart is top-normal. Bones/joints: Status post median sternotomy. IMPRESSION: 1. Postoperative chest. 2. Significant COPD suspect. 3. No acute findings. Thank you for allowing us to participate in the care of your patient. Dictated and Authenticated by: Juanito Gongora MD 04/13/2020 11:10 PM Central Time ([place] & [place]) MAC
== END 2020-04-13 23:10 | disposition home or self-care (01) ==
LOC: JD.ED 21:00
DX: T83.511A Infection and inflammatory reaction due to indwelling urethral catheter, initial encounter (principal); I25.10 Atherosclerotic heart disease of native coronary artery without angina pectoris; E78.00 Pure hypercholesterolemia, unspecified; I10 Essential (primary) hypertension; I25.2 Old myocardial infarction; J44.9 Chronic obstructive pulmonary disease, unspecified; K21.9 Gastro-esophageal reflux disease without esophagitis; G30.9 Alzheimer's disease, unspecified; F02.80 Dementia in other diseases classified elsewhere, unspecified severity, without behavioral disturbance, psychotic disturbance, mood disturbance, and anxiety; M19.90 Unspecified osteoarthritis, unspecified site; Z79.82 Long term (current) use of aspirin; Z79.84 Long term (current) use of oral hypoglycemic drugs; Z86.73 Personal history of transient ischemic attack (TIA), and cerebral infarction without residual deficits; Z79.02 Long term (current) use of antithrombotics/antiplatelets
CPT/HCPCS: 36415; 71046; 80053; 81001; 83735; 85025; 87086; 87088; 87186; 99285; A9270; 99284

== ENCOUNTER 2020-05-18 16:35 | Emergency (ER) | payer MEDICARE, BC ==
[2020-05-18] MEDS: Lidocaine 2% Jelly 10 ML Urojet MUCMEM STA ×2 (17:21→17:34)
--- NOTE | 2020-05-18 17:55 | EDM.PDOC ---
ED HPI GENERAL MEDICAL PROBLEM - General Chief Complaint: Genitourinary Problem Stated Complaint: POSS UTI/CONFUSION Time Seen by Provider: 05/18/20 16:42 Source of Information: Reports: Family, RN Notes Reviewed History Limitations: Reports: No Limitations - History of Present Illness INITIAL COMMENTS - FREE TEXT/NARRATIVE: Patient is an 79-year-old male presenting to the emergency department accompanied by his daughter with complaints of increased confusion and some unsteadiness on his feet. She states that he has been increasingly confused of last week. He does have underlying dementia and lives in a memory care facility. He has a chronic indwelling Schmidt catheter which was placed on 05 May. Daughter states that today staff report that he appears to be somewhat unsteady on his feet and that he has been going into the bathroom frequently as if he feels like he needs to use the bathroom. He has had no fever, chills, vomiting, or diarrhea. He does have a history of catheter associated urinary tract infections. - Related Data Allergies Allergy/AdvReac Type Severity Reaction Status Date / Time No Known Allergies Allergy Verified 05/18/20 16:56 Home Meds: Home Meds Clopidogrel [Plavix] 75 mg PO DAILY 01/10/18 [History] Acetaminophen [Tylenol] 650 mg PO Q6H PRN 11/16/18 [History] Aspirin [Adult Low Dose Aspirin EC] 81 mg PO DAILY 11/16/18 [History] Memantine [Namenda] 5 mg PO BID 11/16/18 [History] Pantoprazole [ProTONIX] 40 mg PO QAM 11/16/18 [History] QUEtiapine Fumarate [Seroquel] 50 mg PO BID 11/16/18 [History] Rosuvastatin [Crestor] 5 mg PO DAILY 11/16/18 [History] metFORMIN HCl [Metformin HCl] 500 mg PO QAM 11/16/18 [History] polyethylene glycoL 3350 [MiraLAX] 17 gm PO DAILY 11/16/18 [History] Ipratropium/Albuterol Sulfate [Iprat-Albut 0.5-3(2.5) MG/3 ML] 1 dose INH ASDIRECTED 04/13/20 [History] Cefdinir [Omnicef] 300 mg PO BID #14 cap 05/18/20 [Rx] Meclizine [Antivert] 25 mg PO DAILY 05/18/20 [History] OLANZapine [ZyPREXA] 5 mg PO DAILY 05/18/20 [History] Ondansetron [Zofran ODT] 4 mg PO Q6H PRN 05/18/20 [History] Past Medical History Cardiovascular History: Reports: Aneurysm, CAD, High Cholesterol, Hypertension, [place] Respiratory History: Reports: COPD Gastrointestinal History: Reports: GERD Genitourinary History: Reports: BPH, UTI, Recurrent Other Genitourinary History: indwelling schmidt Musculoskeletal History: Reports: Osteoarthritis Neurological History: Reports: Alzheimers Disease, CVA Psychiatric History: Reports: Dementia, Other (See Below) Other Psychiatric History: behavioral disturbance Endocrine/Metabolic History: Reports: Diabetes, Type II, Other (See Below) - Past Surgical History HEENT Surgical History: Reports: Cataract Surgery Cardiovascular Surgical History: Reports: Coronary Artery Bypass GI Surgical History: Reports: Hernia, Inguinal Social & Family History - Family History Family Medical History: No Pertinent Family History - Tobacco Use Tobacco Use Status *Q: Former Tobacco User Used Tobacco, but Quit: Yes Month/Year Tobacco Last Used: 2017 - Caffeine Use Caffeine Use: Reports: Coffee - Recreational Drug Use Recreational Drug Use: No - Living Situation & Occupation Living situation: Reports: , with Spouse, [facility] Facility ([facility]) Occupation: Retired ED ROS GENERAL - Review of Systems Review Of Systems: See Below Constitutional: Reports: Weakness. Denies: Fever HEENT: Reports: No Symptoms Respiratory: Reports: No Symptoms Cardiovascular: Reports: No Symptoms Endocrine: Reports: No Symptoms GI/Abdominal: Reports: No Symptoms. Denies: Abdominal Pain, Diarrhea, Nausea, Vomiting : Reports: Other (Repeatedly attempting to go to the bathroom despite Schmidt catheter.) Musculoskeletal: Reports: No Symptoms Skin: Reports: No Symptoms Neurological: Reports: Confusion Psychiatric: Reports: Confusion Hematologic/Lymphatic: Reports: No Symptoms Immunologic: Reports: No Symptoms ED EXAM, RENAL/ - Physical Exam Exam: See Below General Appearance: Alert, WD/WN, No Apparent Distress Respiratory/Chest: No Respiratory Distress, Lungs Clear, Normal Breath Sounds, No Accessory Muscle Use, Chest Non-Tender Cardiovascular: Normal Peripheral Pulses, Regular Rate, Rhythm, No Edema, No Gallop, No JVD, No Murmur, No Rub GI/Abdominal: Normal Bowel Sounds, Soft, Non-Tender, No Organomegaly, No Distention, No Abnormal Bruit, No Mass (Male) Exam: Other (Indwelling Schmidt catheter.). No: Urethral Discharge Neurological: Alert, No Motor/Sensory Deficits, Confused, Disoriented Psychiatric: Normal Affect, Normal Mood Skin Exam: Warm, Dry, Intact, Normal Color, No Rash Course - Vital Signs Last Recorded V/S: Last Vital Signs Temp 97.5 F 05/18/20 16:53 Pulse 86 05/18/20 16:53 Resp 16 05/18/20 16:53 BP 108/91 H 05/18/20 16:53 Pulse Ox 94 L 05/18/20 16:53 - Orders/Labs/Meds Labs: Laboratory Tests 05/18/20 05/18/20 05/18/20 Range/Units 17:20 17:20 17:20 WBC 8.47 (4.23-9.07) K/mm3 RBC 3.29 L (4.63-6.08) M/mm3 Hgb 10.4 L (13.7-17.5) gm/dl Hct 33.8 L (40.1-51.0) % MCV 102.7 H (79.0-92.2) fl MCH 31.6 (25.7-32.2) pg MCHC 30.8 L (32.2-35.5) g/dl RDW Std Deviation 52.7 H (35.1-43.9) fL Plt Count 247 (163-337) K/mm3 MPV 9.7 (9.4-12.3) fl Neut % (Auto) 65.1 (34.0-67.9) % Lymph % (Auto) 19.4 L (21.8-53.1) % [place] % (Auto) 10.0 (5.3-12.2) % Eos % (Auto) 4.8 (0.8-7.0) Baso % (Auto) 0.5 (0.1-1.2) % Neut # (Auto) 5.51 H (1.78-5.38) K/mm3 Lymph # (Auto) 1.64 (1.32-3.57) K/mm3 [place] # (Auto) 0.85 H (0.30-0.82) K/mm3 Eos # (Auto) 0.41 (0.04-0.54) K/mm3 Baso # (Auto) 0.04 (0.01-0.08) K/mm3 Sodium 138 (136-145) mEq/L Potassium 4.6 (3.5-5.1) mEq/L Chloride 103 (98-107) mEq/L Carbon Dioxide 27 (21-32) mEq/L Anion Gap 12.6 (5-15) BUN 35 H (7-18) mg/dL Creatinine 2.0 H (0.7-1.3) mg/dL Est Cr Clr Drug Dosing TNP Estimated GFR (MDRD) 32 (>60) mL/min BUN/Creatinine Ratio 17.5 (14-18) Glucose 110 (83-115) mg/dL Lactic Acid 0.8 (0.4-2.0) mmol/L Calcium 9.3 (8.5-10.1) mg/dL Total Bilirubin 0.5 (0.2-1.0) mg/dL AST 20 (15-37) U/L ALT 16 (16-63) U/L Alkaline Phosphatase 64 (46-116) U/L C-Reactive Protein 4.6 H* (<1.0) mg/dL Total Protein 7.1 (6.4-8.2) g/dl Albumin 3.5 (3.4-5.0) g/dl Globulin 3.6 gm/dL Albumin/Globulin Ratio 1.0 (1-2) Urine Color (Yellow) Urine Appearance (Clear) Urine pH (5.0-8.0) Ur Specific [place] (1.005-1.030) Urine Protein (Negative) Urine Glucose (UA) (Negative) Urine Ketones (Negative) Urine Occult Blood (Negative) Urine Nitrite (Negative) Urine Bilirubin (Negative) Urine Urobilinogen (0.2-1.0) Ur Leukocyte Esterase (Negative) Urine RBC (0-5) /hpf Urine WBC (0-5) /hpf Ur Squamous Epith Cells (0-5) /hpf Urine Bacteria (FEW) /hpf Urine Mucus (FEW) /hpf 05/18/20 Range/Units 17:25 WBC (4.23-9.07) K/mm3 RBC (4.63-6.08) M/mm3 Hgb (13.7-17.5) gm/dl Hct (40.1-51.0) % MCV (79.0-92.2) fl MCH (25.7-32.2) pg MCHC (32.2-35.5) g/dl RDW Std Deviation (35.1-43.9) fL Plt Count (163-337) K/mm3 MPV (9.4-12.3) fl Neut % (Auto) (34.0-67.9) % Lymph % (Auto) (21.8-53.1) % [place] % (Auto) (5.3-12.2) % Eos % (Auto) (0.8-7.0) Baso % (Auto) (0.1-1.2) % Neut # (Auto) (1.78-5.38) K/mm3 Lymph # (Auto) (1.32-3.57) K/mm3 [place] # (Auto) (0.30-0.82) K/mm3 Eos # (Auto) (0.04-0.54) K/mm3 Baso # (Auto) (0.01-0.08) K/mm3 Sodium (136-145) mEq/L Potassium (3.5-5.1) mEq/L Chloride (98-107) mEq/L Carbon Dioxide (21-32) mEq/L Anion Gap (5-15) BUN (7-18) mg/dL Creatinine (0.7-1.3) mg/dL Est Cr Clr Drug Dosing Estimated GFR (MDRD) (>60) mL/min BUN/Creatinine Ratio (14-18) Glucose (83-115) mg/dL Lactic Acid (0.4-2.0) mmol/L Calcium (8.5-10.1) mg/dL Total Bilirubin (0.2-1.0) mg/dL AST (15-37) U/L ALT (16-63) U/L Alkaline Phosphatase (46-116) U/L C-Reactive Protein (<1.0) mg/dL Total Protein (6.4-8.2) g/dl Albumin (3.4-5.0) g/dl Globulin gm/dL Albumin/Globulin Ratio (1-2) Urine Color Yellow (Yellow) Urine Appearance Cloudy H (Clear) Urine pH 8.5 H (5.0-8.0) Ur Specific [place] 1.015 (1.005-1.030) Urine Protein 2+ H (Negative) Urine Glucose (UA) Negative (Negative) Urine Ketones Negative (Negative) Urine Occult Blood 3+ H (Negative) Urine Nitrite Positive H (Negative) Urine Bilirubin Negative (Negative) Urine Urobilinogen 1.0 (0.2-1.0) Ur Leukocyte Esterase 3+ H (Negative) Urine RBC 20-30 H (0-5) /hpf Urine WBC 30-40 H (0-5) /hpf Ur Squamous Epith Cells 0-5 (0-5) /hpf Urine Bacteria Many H (FEW) /hpf Urine Mucus Few (FEW) /hpf Meds: Medications Discontinued Medications Generic Name Dose Route Start Last Admin Trade Name Freq PRN Reason Stop Dose Admin Ceftriaxone Sodium 1 gm/ 0 gm 05/18/20 18:27 05/18/20 18:42 Lidocaine HCl 2.1 ml IM 05/18/20 18:28 1 inj ONETIME ONE Administration Lidocaine HCl 10 ml 05/18/20 17:12 05/18/20 17:34 Xylocaine 2% Jelly MUCMEM 05/18/20 17:13 Not Given ONETIME STA - Re-Assessments/Exams Free Text/Narrative Re-Assessment/Exam: Patient is an 79-year-old male brought to the emergency department with concerns of possible urinary tract infection. He has had increased confusion as well as onset of some slight weakness today. He does have a history of urinary tract infections associated with a chronic indwelling Schmidt. Nursing staff completed a bladder scan on arrival to ER had he was noted to have 650 mils of urine in his bladder indicating that his Schmidt catheter is not draining. Nursing staff did change his Schmidt catheter and it is flowing well at this time. I have ordered CBC, CMP, CRP, urinalysis, urine culture, and a culture of the Schmidt catheter tip. 05/18/20 18:28 Hematology was significant for hemoglobin slightly low at 10.4, BUN 35, creatinine 2.0, CRP 4.6. WBCs are normal. Lactic acid is normal. Urinalysis was grossly positive for urinary tract infection. It was nitrite positive, there is 3+ leukocyte esterase, 20-30 RBCs, 30-40 WBCs, and many bacteria. Patient is feeling better since the Schmidt catheter was replaced and his bladder has drained. We will give him an injection of IM Rocephin and discharge him home with a prescription for Omnicef. Urine has been sent for culture. Discharge instructions as documented. Departure - Departure Time of Disposition: 18:30 Disposition: Home, Self-Care 01 Condition: Good Clinical Impression: UTI, Urinary tract infectious disease - Discharge Information *PRESCRIPTION DRUG MONITORING PROGRAM REVIEWED*: No *COPY OF PRESCRIPTION DRUG MONITORING REPORT IN PATIENT LONG: No Prescriptions: Cefdinir [Omnicef] 300 mg PO BID #14 cap Instructions: Indwelling Urinary Catheter Care, Adult, Urinary Tract Infection, Adult Referrals: Palmer Mccarty MD [Primary Care Provider] - Forms: ED Department Discharge Additional Instructions: Lobo was seen in the emergency department today for increased confusion and weakness. Work-up included blood work and a urinalysis. Results of the blood work were found to be overall normal. There are no signs of systemic infection. His urinalysis was positive for urinary tract infection. Schmidt catheter was changed in the emergency department today. The urine and the tip of catheter have been sent for culture. While in the ER, Lobo received an injection of Rocephin. A prescription for Omnicef has been sent to [facility]. He should take this as prescribed starting tomorrow. If the culture should grow out a bacteria that is not susceptible to this antibiotic, you will be notified and the antibiotic will be changed. If he should experience any new or worsening symptoms of concern, please not hesitate to return him to the emergency department for reevaluation. Sepsis Event Note (ED) - Evaluation Sepsis Screening Result: No Definite Risk
[2020-05-18] MEDS ORDERED: cefTRIAXone 1 GM, Lidocaine 1% 2.1 ML IM ONE ×2 (18:27)
== END 2020-05-18 18:50 | disposition home or self-care (01) ==
LOC: JD.ED 16:35
DX: N39.0 Urinary tract infection, site not specified (principal); I25.10 Atherosclerotic heart disease of native coronary artery without angina pectoris; E78.00 Pure hypercholesterolemia, unspecified; I10 Essential (primary) hypertension; I25.2 Old myocardial infarction; K21.9 Gastro-esophageal reflux disease without esophagitis; M19.90 Unspecified osteoarthritis, unspecified site; G30.9 Alzheimer's disease, unspecified; F02.80 Dementia in other diseases classified elsewhere, unspecified severity, without behavioral disturbance, psychotic disturbance, mood disturbance, and anxiety; E11.9 Type 2 diabetes mellitus without complications; Z79.84 Long term (current) use of oral hypoglycemic drugs; J44.9 Chronic obstructive pulmonary disease, unspecified; Z79.82 Long term (current) use of aspirin; Z79.899 Other long term (current) drug therapy; Z79.02 Long term (current) use of antithrombotics/antiplatelets; Z87.891 Personal history of nicotine dependence; Z86.73 Personal history of transient ischemic attack (TIA), and cerebral infarction without residual deficits
CPT/HCPCS: 36415; 51702; 51798; 80053; 81001; 83605; 85025; 86140; 87040; 87070; 87086; 87088; 87186; 96372; 99283; J0696; J2001